=== PATIENT | male | born 1980 | race Caucasian/White ===

== ENCOUNTER 2018-03-16 01:08 | Emergency (ER) | payer OTHER ==
[~2018-03-16] VITALS: Ht 177.8 cm; Wt 82.6 kg
[~2018-03-16 01:08] MED LIST: CLEOCIN HCL300 MG PO; KEFLEX500 MG PO; LAC PO; NORCO1 TA1 PO; NORCO1 TA2 PO
[2018-03-16 03:41] VITALS: BP 122/63
== END 2018-03-16 03:41 | disposition home or self-care (01) ==
LOC: ED 01:08
DX: R11.2 Nausea with vomiting, unspecified (principal); R19.7 Diarrhea, unspecified; R10.13 Epigastric pain; R10.12 Left upper quadrant pain
CPT/HCPCS: J2405; J7030

== ENCOUNTER 2018-04-22 14:20 | Emergency (ER) | payer OTHER ==
[~2018-04-22] VITALS: Ht 175.3 cm; Wt 84.8 kg
[2018-04-22 14:24] VITALS: BP 120/78; Ht 175.3 cm; Wt 84.8 kg
== END 2018-04-22 15:13 | disposition home or self-care (01) ==
LOC: ED 14:20
DX: G62.9 Polyneuropathy, unspecified (principal)

== ENCOUNTER 2018-06-27 05:30 | Emergency (ER) | payer OTHER ==
[~2018-06-27] VITALS: Ht 175.3 cm; Wt 857.3 kg
[2018-06-27 05:42] VITALS: BP 129/87; Ht 175.3 cm; Wt 857.3 kg
== END 2018-06-27 06:59 | disposition home or self-care (01) ==
LOC: ED 05:30
DX: G89.29 Other chronic pain (principal); M79.641 Pain in right hand

== ENCOUNTER 2018-08-28 02:54 | Emergency (ER) | payer OTHER ==
[~2018-08-28] VITALS: Ht 175.3 cm; Wt 85.7 kg
[2018-08-28 02:58] VITALS: Ht 175.3 cm; Wt 85.7 kg
[2018-08-28 04:50] VITALS: BP 124/79
== END 2018-08-28 04:50 | disposition home or self-care (01) ==
LOC: ED 02:54
DX: L98.499 Non-pressure chronic ulcer of skin of other sites with unspecified severity (principal); Z98.890 Other specified postprocedural states

== ENCOUNTER 2018-09-19 03:43 | Emergency (ER) | payer OTHER ==
[~2018-09-19] VITALS: Ht 175.3 cm; Wt 87.7 kg
[2018-09-19 03:50] VITALS: Ht 175.3 cm; Wt 87.7 kg
[2018-09-19 05:57] VITALS: BP 137/82
== END 2018-09-19 05:58 | disposition home or self-care (01) ==
LOC: ED 03:43
DX: M79.89 Other specified soft tissue disorders (principal); M70.52 Other bursitis of knee, left knee; Y93.89 Activity, other specified

== ENCOUNTER 2018-11-21 03:13 | Emergency (ER) | payer OTHER ==
[~2018-11-21] VITALS: Ht 175.3 cm; Wt 86.4 kg
[2018-11-21 03:26] VITALS: BP 130/79; Ht 175.3 cm; Wt 86.4 kg
== END 2018-11-21 06:08 | disposition left against medical advice (07) ==
LOC: ED 03:13
DX: Z53.21 Procedure and treatment not carried out due to patient leaving prior to being seen by health care provider (principal)

== ENCOUNTER 2019-01-08 16:35 | Emergency (ER) | payer OTHER ==
[~2019-01-08] VITALS: Ht 175.3 cm; Wt 85.8 kg
[2019-01-08 16:37] VITALS: Ht 175.3 cm; Wt 85.8 kg
[2019-01-08 18:06] VITALS: BP 132/90
== END 2019-01-08 18:06 | disposition home or self-care (01) ==
LOC: ED 16:35
DX: L03.115 Cellulitis of right lower limb (principal); F17.210 Nicotine dependence, cigarettes, uncomplicated
CPT/HCPCS: J0696; J1885

== ENCOUNTER 2019-01-13 15:09 | Emergency (ER) | payer OTHER ==
[~2019-01-13] VITALS: Ht 175.3 cm; Wt 84.8 kg
[2019-01-13 15:29] VITALS: Ht 175.3 cm; Wt 84.8 kg
[2019-01-13 17:30] VITALS: BP 132/87
== END 2019-01-13 17:30 | disposition home or self-care (01) ==
LOC: ED 15:09
DX: L02.415 Cutaneous abscess of right lower limb (principal)
CPT/HCPCS: J2001

== ENCOUNTER 2019-03-15 16:37 | Emergency (ER) | payer OTHER ==
[~2019-03-15] VITALS: Ht 175.3 cm; Wt 86.2 kg
[2019-03-15 16:47] VITALS: BP 120/82; Ht 175.3 cm; Wt 86.2 kg
== END 2019-03-15 17:32 | disposition home or self-care (01) ==
LOC: ED 16:37
DX: L20.9 Atopic dermatitis, unspecified (principal); L03.116 Cellulitis of left lower limb; L03.115 Cellulitis of right lower limb; L03.114 Cellulitis of left upper limb; L03.113 Cellulitis of right upper limb; Z98.890 Other specified postprocedural states

== ENCOUNTER 2019-03-17 10:12 | Emergency (ER) | payer OTHER | END 2019-03-17 11:15 | disposition left against medical advice (07) | LOC: ED 10:12 | DX: Z53.21 Procedure and treatment not carried out due to patient leaving prior to being seen by health care provider (principal) ==